=== PATIENT | male | born 2000 | race Caucasian/White ===

== ENCOUNTER 2024-01-01 19:39 | Emergency (ER) | payer BC, OTHER ==
[2024-01-01 19:46] VITALS: RESP 16; BMI 28.3
[2024-01-01 19:53] VITALS: BP 125/77; PULSE 66; TEMP 99
== END 2024-01-01 21:49 | disposition home or self-care (01) ==
LOC: FER 19:39
DX: S80.12XA Contusion of left lower leg, initial encounter (principal); W22.8XXA Striking against or struck by other objects, initial encounter
CPT/HCPCS: 73560-TC-LT-FY; 93971-LT; 99283-25